=== PATIENT | female | born 1970 | race Caucasian/White ===

== ENCOUNTER 2016-11-30 04:30 | Emergency (ER) | payer BC ==
[~2016-11-30] VITALS: Ht 170.2 cm; Wt 91.6 kg
[~2016-11-30 04:30] MED LIST: PRENTAB26 PO; SERT-234 PO; SYN50 PO; [UNRECOGNIZED DRUG - CODE]
[2016-11-30 04:32] VITALS: TEMP 37.1; Ht 170.2 cm; Wt 91.6 kg
[2016-11-30] MEDS ORDERED: KETOROLAC TROMETHAMINE 30 MG/ML VIAL IV STA (04:51)
[2016-11-30] MEDS ORDERED: LEVO100T PO (04:56)
[2016-11-30] MEDS ORDERED: SERT50TA PO (04:57)
[2016-11-30] MEDS ORDERED: CLIN300C2 PO (04:58)
[2016-11-30] MEDS ORDERED: ACETAMINOPHEN IV 100 ML IV ONE (05:00)
[2016-11-30] MEDS ORDERED: SODIUM CHLORIDE 0.9% 1000ML 1,000 ML, SODIUM CHLORIDE 0.9% 1000ML 1,000 ML IV ONE (05:00)
[2016-11-30] MEDS ORDERED: DEXAMETHASONE SOD INJ 10 MG/ML VIAL IV ONE (05:00)
[2016-11-30 05:24] LABS: BASO % 0.1 %; BASO ABS # 0.02 K/uL (0-0.2); COMPLETE YES; EOS % 0.1 %; HEMATOCRIT 39.6 % (37-47); IG% 0.4 %; MEAN CELL VOLUME 83.9 fL (80-100); MEAN CORPUSCULAR HEMOGLOBIN 29.2 pg (25-34); MEAN CORPUSCULAR HGB CONC 34.8 g/dl (32-36); MEAN PLATELET VOLUME 9.6 fL (7.4-10.4); MONO % 12.7 %; NEUT % 72.7 %; PLATELET COUNT 265 K/uL (130-400); RED BLOOD COUNT 4.72 M/uL (4.2-5.4); WHITE BLOOD COUNT 14.28 K/uL (4.8-10.8)
[2016-11-30 05:37] LABS: BUN/CREATININE RATIO 9.9 (10-20); CALCIUM 8.4 mg/dl (8.5-10.1); CREATININE 0.59 mg/dl (0.60-1.20); POTASSIUM 3.4 mmol/L (3.5-5.1)
[2016-11-30 05:40] LABS: ALB/GLOB RATIO 0.8 (0.9-2)
[2016-11-30] MEDS ORDERED: AMPICILLIN/SULBACTAM SOD INJ 3,000 MG in SODIUM CHLORIDE 0.9% 100ML 100 ML IV STA (05:53)
[2016-11-30] MEDS ORDERED: AMOX875T PO (06:10)
[2016-11-30] MEDS ORDERED: METH4PAK PO (06:10)
[2016-11-30] MEDS ORDERED: HYDR-5688 PO (06:10)
[2016-11-30 07:01] VITALS: BP 115/67; PULSE 83; O2SAT 94
--- NOTE | 2016-12-01 00:01 | EMERGENCY ROOM VISIT NOTE ---
History First contact with patient: 04:38 Chief Complaint: ILLNESS Stated Complaint: FEVER,ACHES,THROAT,NAUSEA,DIARRHEA History of Present Illness The patient is a 46 year old female who presents to the Emergency Room with complaints of sore throat, fever, and upset stomach for the past 5 or 6 days. The patient states that she was seen earlier in the week at her primary care physician's office where a strep and culture were negative. The patient was treated conservatively, however she has been having an intermittent fever as high as 102F at home. She went to an urgent care clinic this morning, roughly 16 hours ago, where she was started on clindamycin. She has taken two doses of the medication, however this has not improved her symptoms. She states tonight she was having difficulty sleeping, and had worsening pain in her throat, prompting her presentation to the department. She has some GI upset after starting the clindamycin, and did have one episode of watery stool. She is nauseated without vomiting. She has not taken anything [id number] for pain or fever control in about 12 hours. She rates her discomfort a 7/10. Review of Systems More than 10 systems were reviewed and otherwise negative with the exception of history of present illness. Past Medical/Surgical History No pertinent chronic medical disease Family History No pertinent family history Social History Smoking Status: Never Smoker Housing Status: lives with family Current/Historical Medications Scheduled Amoxicillin & Pot Clavulanate (Augmentin 875-125 mg), 1 TAB PO BID Clindamycin Hcl (Cleocin), 300 MG PO TID Levothyroxine Sodium (Synthroid), 100 MCG PO DAILY Methylprednisolone (Medrol Dosepak), 1 PKT PO UD Sertraline (Zoloft), 50 MG PO DAILY Scheduled PRN Hydrocodone/Acetaminophen 5MG/325MG ([place] 5MG/325MG), 1 TABLET PO Q6 PRN for Pain Physical Exam Vital Signs Date Time Temp Pulse Resp B/P (MAP) Pulse Ox O2 Delivery O2 Flow Rate FiO2 11/30/16 07:01 83 16 115/67 94 11/30/16 05:59 82 18 126/58 93 Room Air 11/30/16 04:32 37.1 105 24 133/88 94 Room Air Pain Rating (0-10): 2.0 Physical Exam VITALS: Vitals are noted on the nurse's note and reviewed by myself. Vital signs stable. GENERAL: Well-developed, well-nourished, white female, who is ill appearing but not toxic. Patient is cooperative with the examination. HEAD: Normocephalic atraumatic. EARS: External ear normal. External auditory canals clear, tympanic membranes pearly serrato without erythema or effusion bilaterally. EYES: Pupils equal round and reactive to light and accommodation. Conjunctivae without injection, sclerae without icterus. Extraocular movements intact. NOSE: Patent, turbinates without inflammation or discharge. MOUTH: Mucous membranes moist. Tonsils are 2+ enlarged with exudates. Uvula is midline. There is no evidence of posterior pharyngeal swelling or peritonsillar abscess on examination. The patient is phonating appropriately. She is able to handle her own secretions. NECK: Supple without nuchal rigidity. Shotty lymphadenopathy along the anterior cervical chain HEART: Regular rate and rhythm without murmurs gallops or rubs. LUNGS: Clear to auscultation bilaterally without wheezes, rales or rhonchi. No retractions or accessory muscle use. ABDOMEN: Positive normal bowel sounds x 4. Soft, nontender, without masses or organomegaly. No guarding or rebound tenderness. Medical Decision & Procedures Laboratory Results 11/30/16 05:00 Red Blood Count 4.72, Mean Corpuscular Volume 83.9, Mean Corpuscular Hemoglobin 29.2, Mean Corpuscular Hemoglobin Concent 34.8, Mean Platelet Volume 9.6, Neutrophils (%) (Auto) 72.7, Lymphocytes (%) (Auto) 14.0, Monocytes (%) (Auto) 12.7, Eosinophils (%) (Auto) 0.1, Basophils (%) (Auto) 0.1, Neutrophils # (Auto ) 10.38, Lymphocytes # (Auto) 2.00, Monocytes # (Auto) 1.81, Eosinophils # (Auto ) 0.01, Basophils # (Auto) 0.02 11/30/16 05:00 Test 11/30/16 05:00 White Blood Count 14.28 K/uL (4.8-10.8) Red Blood Count 4.72 M/uL (4.2-5.4) Hemoglobin 13.8 g/dL (12.0-16.0) Hematocrit 39.6 % (37-47) Mean Corpuscular Volume 83.9 fL (80-100) Mean Corpuscular Hemoglobin 29.2 pg (25-34) Mean Corpuscular Hemoglobin Concent 34.8 g/dl (32-36) Platelet Count 265 K/uL (130-400) Mean Platelet Volume 9.6 fL (7.4-10.4) Neutrophils (%) (Auto) 72.7 % Lymphocytes (%) (Auto) 14.0 % Monocytes (%) (Auto) 12.7 % Eosinophils (%) (Auto) 0.1 % Basophils (%) (Auto) 0.1 % Neutrophils # (Auto) 10.38 K/uL (1.4-6.5) Lymphocytes # (Auto) 2.00 K/uL (1.2-3.4) Monocytes # (Auto) 1.81 K/uL (0.11-0.59) Eosinophils # (Auto) 0.01 K/uL (0-0.5) Basophils # (Auto) 0.02 K/uL (0-0.2) RDW Standard Deviation 38.5 fL (36.4-46.3) RDW Coefficient of Variation 12.5 % (11.5-14.5) Immature Granulocyte % (Auto) 0.4 % Immature Granulocyte # (Auto) 0.06 K/uL (0.00-0.02) Anion Gap 8.0 mmol/L (3-11) Est Creatinine Clear Calc Drug Dose 138.5 ml/min Estimated GFR () 127.4 Estimated GFR (Non- 109.9 BUN/Creatinine Ratio 9.9 (10-20) Calcium Level 8.4 mg/dl (8.5-10.1) Total Bilirubin 0.6 mg/dl (0.2-1) Aspartate Amino Transf (AST/SGOT) 12 U/L (15-37) Alanine Aminotransferase (ALT/SGPT) 17 U/L (12-78) Alkaline Phosphatase 67 U/L (45-117) Total Protein 7.9 gm/dl (6.4-8.2) Albumin 3.4 gm/dl (3.4-5.0) Globulin 4.5 gm/dl (2.5-4.0) Albumin/Globulin Ratio 0.8 (0.9-2) Monoscreen NEG (NEG) Medications Administered Medications (Trade) Dose Ordered Sig/Jaden Route Start Time Stop Time Status Last Admin Dose Admin Sodium Chloride/ Sodium Chloride 2,000 ml @ 999 mls/hr Q2H1M ONCE IV 11/30/16 05:00 11/30/16 07:00 DC 11/30/16 05:03 999 MLS/HR Ketorolac Tromethamine (Toradol Inj) 30 mg NOW STAT IV 11/30/16 04:51 11/30/16 04:53 DC 11/30/16 05:02 30 MG Dexamethasone Sodium Phosphate (Decadron Inj) 10 mg NOW ONCE IV 11/30/16 05:00 11/30/16 05:01 DC 11/30/16 05:02 10 MG Acetaminophen 100 ml @ 400 mls/hr NOW ONCE IV 11/30/16 05:00 11/30/16 05:14 DC 11/30/16 05:02 400 MLS/HR Ampicillin Sodium/ Sulbactam Sodium 3000 mg/Sodium Chloride 108 ml @ 200 mls/hr NOW STAT IV 11/30/16 05:53 11/30/16 06:25 DC 11/30/16 06:21 200 MLS/HR ED Course Physical exam and history were performed. Nursing notes, EMR, and Medication List were personally reviewed. Patient appears to have sore throat symptoms for the past 5 days with intermittent fever. On examination she appears ill but not toxic. She does have enlarged exudative tonsils without evidence of airway compromise or abscess collection. The patient has had a fever intermittently and negative outpatient rapid strep and culture. IV access was established and labs were obtained. She was hydrated with 2 L normal saline. She was given IV Toradol and IV Tylenol. I additionally started the patient on IV Decadron and Unasyn. The patient's blood work is as above and was reviewed. She does have a slightly elevated lipids count of 14,000 which was expected. She does not have a significant anemia or gross electrolyte imbalance. LFTs are nondiagnostic. Clare is negative. Renal function appears intact. On reevaluation the patient felt significantly better. She seems well for discharge home. I do suspect a pharyngitis last tonsillitis as the etiology of her symptoms. I will give her a course of Augmentin and have her stop the clindamycin. The patient will also be given a short course of Vicodin and a Medrol Dosepak. I do feel that she needs a short interval follow-up, and will ask her to follow with her primary care physician in the next 2-3 days for recheck. We discussed the importance of monitoring for worsening symptoms such as voice changes, drooling, or difficulty breathing. The patient was certainly invited back to the ER with any new, worsening, or concerning symptoms. She was pleased with plan of care and rated her discomfort a 1/10 at the time of departure. The chart was completed utilizing [employer] Voice Recognition Software. Grammatical errors, random word insertions, pronoun errors, and incomplete sentences are an occasional consequence of this system due to software limitations, ambient noise, and hardware issues. Any formal questions or concerns about the content, text, or information contained within the body of this dictation should be directly addressed to the provider for clarification. . Medical Decision Differential diagnosis: Etiologies such as viral syndrome, tonsillitis, streptococcal pharyngitis, mononucleosis, peritonsillar abscess, retropharyngeal abscess, otitis, pneumonia , influenza, as well as others were entertained. Medication Reconcilliation Current Medication List: was personally reviewed by me Blood Pressure Screening Patient's blood pressure: Normal blood pressure Impression Primary Impression: Pharyngitis Departure Information Dispostion Home / Self-Care Condition GOOD Prescriptions Hydrocodone/Acetaminophen 5MG/325MG ([place] 5MG/325MG) Tab 1 TABLET PO Q6 Y for Pain, #12 TAB For Initial Treatment Prov: Clayton Aranda PA-C 11/30/16 Methylprednisolone (MEDROL DOSEPAK) 4 Mg Percy 1 PKT PO UD for 6 Days, #1 PKT Prov: Clayton Aranda PA-C 11/30/16 Amoxicillin & Pot Clavulanate (Augmentin 875-125 mg) 1 Tab Tab 1 TAB PO BID for 10 Days, #20 TAB Prov: Clayton Aranda PA-C 11/30/16 Forms HOME CARE DOCUMENTATION FORM, IMPORTANT VISIT INFORMATION Patient Instructions My [facility] Additional Instructions You were seen and evaluated today on an emergency basis only. This is not a substitute for, or an effort to provide, complete comprehensive medical care. It is not possible to recognize and treat all injuries or illnesses in a single emergency department visit. For this reason it is recommended that you followup with your primary care physician on Friday for ongoing care and evaluation. For baseline pain relief you may alternate ibuprofen and acetaminophen every 4 hours for pain control. Take 600 mg ibuprofen (Advil) and then 4 hours later take 1000 mg acetaminophen (Tylenol). Do not take more than 3000 mg acetaminophen in a single day. [place] (hydrocodone/acetaminophen) 5/325 mg every 6 hours as needed for worsening breakthrough pain. Do not drink or drive on [place]. This medication will likely make you tired. Do not take [place] and Tylenol at the same time as both contain acetaminophen. [place] may cause constipation. You may wish to take an [id number]-[id number] stool softener like Colace if this occurs. Amoxicillin Clavulanate (Augmentin) 875mg: Take one pill twice daily for 10 days for your infection. All antibiotics can cause diarrhea. If this occurs and you feel worse or it does not resolve in 1-2 days follow up with your doctor or return to the Emergency Department as this could be signs of serious underlying problems. Any medication can cause an allergic reaction, stop the pills immediately and return to the ER for rash, hives, breathing difficulties, or swelling. Take a Medrol Dosepak as prescribed Drink plenty of fluids and remain well hydrated You are welcome to return to the emergency department anytime with new, worsening, or concerning symptoms.
== END 2016-11-30 07:02 | disposition home or self-care (01) ==
LOC: C.EDB 04:31
DX: J02.9 Acute pharyngitis, unspecified (principal); R50.9 Fever, unspecified; R11.0 Nausea

== ENCOUNTER → 2017-01-07 | Outpatient (CLI) | payer BC ==
[~2017-01-07] MED LIST changes: +CLIN300C2 PO; +HYDR-5688 PO; +LEVO100T PO; -PRENTAB26 PO; -SERT-234 PO; +SERT50TA PO; -SYN50 PO; -[UNRECOGNIZED DRUG - CODE]
--- NOTE | 2017-01-08 07:56 | MAMMOGRAPHY REPORT ---
BILATERAL DIGITAL SCREENING MAMMOGRAM TOMOSYNTHESIS WITH CAD: 01/07/2017 CLINICAL HISTORY: Routine screening. Patient has no complaints. TECHNIQUE: Breast tomosynthesis in addition to standard 2D mammography was performed. Current study was also evaluated with a Computer Aided Detection (CAD) system. COMPARISON: Comparison is made to exams dated: 01/05/2016 mammogram, 06/21/2011 mammogram - [facility], 06/01/2008, 06/01/2008, 05/05/2008, and 06/25/2011 mammogram - [facility] enter. BREAST COMPOSITION: The tissue of both breasts is heterogeneously dense, which may obscure small mas ses. FINDINGS: There is a stable biopsy clip in the left breast. No suspicious mass, architectural dist ortion or cluster of new, suspicious microcalcifications is seen. IMPRESSION: ACR BI-RADS CATEGORY 1: NEGATIVE There is no mammographic evidence of malignancy. A 1 year screening mammogram is recommended. The pa tient will receive written notification of the results. Approximately 10% of breast cancers are not detected with mammography. A negative mammographic report should not delay biopsy if a clinically suggestive mass is present. Alexandra Asif M.D. ay/:01/07/2017 21:42:34 Dairy Inspector: Brittanie SULLIVAN(Giselle)(Roderick), [facility] letter sent: Normal 1/2 BI-RADS Code: ACR BI-RADS Category 1: Negative
== END | disposition home or self-care (01) ==
LOC: C.MAMM 09:18
PROVIDERS: ATTEND Family Medicine
DX: Z12.31 Encounter for screening mammogram for malignant neoplasm of breast (principal)